=== PATIENT | male | born 2000 | race Caucasian/White ===

== ENCOUNTER 2019-08-24 19:10 | Emergency (ER) | payer SELFPAY ==
[2019-08-24 19:30] VITALS: BP 117/67; PULSE 68; RESP 22; TEMP 36.9; O2SAT 98; BMI 20.2
--- NOTE | 2019-08-24 21:29 | XR_ITS ---
WS: [id number] LUMBAR SPINE TECHNIQUE: 3 views of the lumbar spine CLINICAL INFORMATION: injury COMPARISON: None. FINDINGS: Five [id number] lumbar vertebral bodies. Mild lumbar curve convex left. Disc space heights are w ell preserved. No compression fractures. No visualized pars defects. No spondylolisthesis. Visualized sacroiliac joints are normal. Normal visualized soft tissues. Partially visualized bowel gas pattern is normal. XR/XR lumbar spine 2-3V* [id number] IMPRESSION: Mild lumbar curve. No acute appearing compression fractures.
--- NOTE | 2019-08-24 21:33 | ED_ITS ---
Entered by Adri Campos, acting as scribe for Nile Cortez MD Aug 24, 2019 19:10 HPI - Back Pain/Injury General: Chief Complaint: Back Pain/Injury Stated Complaint: lower back pain Time Seen by Provider: 08/24/19 21:29 Source: patient and EMS Mode of arrival: EMS Limitations: no limitations History of Present Illness: HPI Narrative: 19 y/o male presents to the ED with complaint of low back pain. Pt states he was attempting to loosen a board that was nailed to another board, when he felt a sudden burning sensation in his back. Pt collapsed in pain and states he has not been able to stand up straight since this occurred around 1630. MD elicited complaint: back pain and back injury Onset (ago): hour(s) Timing: intermittent Pain scale (0-10): 7 Similar Symptoms Previously: No Quality: burning Location: lumbar spine Context: while lifting Associated symptoms: Reports difficulty walking; Deny abdominal pain, chills, fever(s), nausea or vomiting Work related injury: No Review of Systems Const: Denies: fever or chills Eyes: Denies: change in vision ENMT: Denies: throat pain or mouth pain Card: Denies: chest pain Resp: Denies: shortness of breath GI: Denies: abdominal pain, nausea, vomiting or diarrhea Musc: Denies: back pain or joint pain Skin/Breast: Denies: rash Neuro: Reports: difficulty walking; Denies: headache or behavioral changes Psych: Denies: depression Endo: Denies: excessive urination Channing/Lymph: Denies: easy bruising All/Imm: Denies: hives PFSH ED PFSH: Statuses (acute, chronic, etc) shown below reflect problem list status as previously entered and may not be historically accurate Social History Smoking and tobacco status: current every day smoker Physical Exam Const: COMMON NORMALS: no apparent distress, oriented x3 and healthy appearing HENMT: COMMON NORMALS: normocephalic and external nose normal HEAD & SCALP: normocephalic NOSE: external nose normal Eye: COMMON NORMALS: PERRL PUPIL: Yes PERRL Neck/C-Spine: COMMON NORMALS: full ROM and no lymphadenopathy Chest: COMMONS NORMALS: inspection of chest normal Resp: COMMON NORMALS: normal respiratory effort, no use of accessory muscles and clear to auscultation bilaterally AUSCULTATION: clear to auscultation bilaterally Cardio: COMMON NORMALS: regular rate and regular rhythm RATE: regular rate RHYTHM: regular rhythm GI: COMMON NORMALS: normal to inspection, nondistended, normoactive bowel sounds, soft to palpation, non-tender and no masses PALPATION: Yes soft Back/Pelvis: THORACIC SPINE/UPPER BACK: Yes normal to inspection LUMBAR SPINE/LOWER BACK: Yes pain with ROM and Yes lumbar spinal tenderness Extremity: COMMON NORMALS: normal to inspection, full ROM and normal capillary refill Neuro: COMMON NORMALS: oriented x3 Psych: COMMON NORMALS: mental status grossly normal and cooperative Skin: COMMON NORMALS: no rashes or lesions noted GENERAL SKIN EXAM: no rashes or lesions noted Course Vital Signs: Vital signs: Vital Signs Temperature 98.1 F 08/24/19 22:33 Pulse Rate 80 08/24/19 22:33 Respiratory Rate 16 08/24/19 22:33 Blood Pressure 106/55 08/24/19 22:33 Pulse Oximetry 94 08/24/19 22:33 MDM - Back Pain/Injury MDM Narrative: Medical decision making narrative: Patient presents here with back pain that is likely muscular in nature. Patient has no signs of epidural abscess or cord compression. Will place patient on muscle relaxants and Naprosyn. Patient is stable for discharge and is return if worsening. Imaging Data^: xr lumbar spine: Attestation: I personally reviewed and interpreted this imaging study as follows: My impression: no acute abnormality Discharge Plan Discharge Patient Disposition: Home, Self-Care Clinical Impression: Strain of lumbar region Qualifiers: Encounter type: initial encounter Qualified Code(s): S39.012A - Strain of muscle, fascia and tendon of lower back, initial encounter Condition: Stable Prescriptions: New Robaxin-750 750 mg tablet 750 mg PO Q6H Qty: 30 RF: 0 EC-Naprosyn 500 mg tablet,delayed release (DR/EC) 500 mg PO BID PRN (Reason: pain) Qty: 20 RF: 0 Discharge Orders: Discharge Order (Routine); Ordered 08/24/19 Ordered By: Nile Cortez Referrals: Josselyn Diaz BOAT PULLER [Primary Care Provider] - Discharge Diet: Advance as tolerated Discharge Activity: Resume usual activity Patient Instructions: Back Pain (ED) Discharge Date/Time: 08/24/19 22:33 Coding Level of Care Code ED Scientific Informatics Analyst for Chg Fwd Exam Problem Focused The documentation recorded by the yassineibAndres solares Ashley, accurately reflects the service I personally performed and the decisions made by me, Nile Cortez MD Aug 24, 2019 19:10
[2019-08-24] MEDS: HYDROcodone-acetaminophen 5-325 mg Tablet 1 TAB PO (22:09)
[2019-08-24 22:33] VITALS: BP 106/55; PULSE 80; RESP 16; TEMP 36.7; O2SAT 94
== END 2019-08-24 22:33 | disposition home or self-care (01) ==
PROVIDERS: Emergency Provider Emergency Medicine; Family Provider Nurse Practitioner; PCP Nurse Practitioner
DX: S39.012A Strain of muscle, fascia and tendon of lower back, initial encounter (principal); X58.XXXA Exposure to other specified factors, initial encounter; F17.210 Nicotine dependence, cigarettes, uncomplicated
CPT/HCPCS: 72100; 99281; 99283

== ENCOUNTER 2021-01-26 13:34 | Emergency (ER) | payer SELFPAY ==
[2021-01-26 14:00] VITALS: BP 110/72; PULSE 80; RESP 18; TEMP 36.7; O2SAT 97; BMI 19.0
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
[2021-01-26] MEDS: HYDROcodone-acetaminophen 7.5-325 mg Tablet 1 TAB PO (15:47)
[2021-01-26] MEDS: tetracaine 0.5% Op Soln 4 mL Btl 1 DROP EYE-RIGHT (15:48)
[2021-01-26 15:50] VITALS: BP 137/87; PULSE 66; RESP 16; O2SAT 100
== END 2021-01-26 16:13 ==
PROVIDERS: Emergency Provider Nurse Practitioner Family
DX: S05.31XA Ocular laceration without prolapse or loss of intraocular tissue, right eye, initial encounter (principal); F17.210 Nicotine dependence, cigarettes, uncomplicated; X58.XXXA Exposure to other specified factors, initial encounter
CPT/HCPCS: 99285

== ENCOUNTER 2022-11-29 19:27 | Emergency (ER) | payer BC, MEDICAID, SELFPAY ==
[2022-11-29 19:39] VITALS: BP 110/69; PULSE 57; RESP 16; TEMP 36.4; O2SAT 97
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
[2022-11-29] MEDS: cyclobenzaprine 10 mg Tablet PO (21:43)
[2022-11-29] MEDS: naproxen 500 mg Tablet PO (21:43)
[2022-11-29 21:58] VITALS: BP 139/87; PULSE 86; RESP 16; O2SAT 99
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
--- NOTE | 2022-12-02 09:32 | DCPLANNER ---
Addendum entered by Inge Rangel 12/06/22 10:01: Patient had a follow up appointment scheduled with ortho - patient did attend appointment. Addendum entered by Inge Rangel 12/03/22 08:18: clerk manager received the following message from the ortho clinic regarding follow up appointment: attempt made to contact patient - 1st number not accepting msgs/left vm on 2nd number in chart - will also maill letter to call our clinic to schedule - next week w/ dr solis or if they want to see our PA dee matthews we can get them in this week Original Note: clerk manager had message to schedule a follow up appointment for patient with ortho. clerk manager sent patients information to the front office staff at ortho. Patients information will be printed and reviewed. Clinic will call patient with appointment information.
== END 2022-11-29 21:59 | disposition home or self-care (01) ==
PROVIDERS: Emergency Provider Physician Assistant; PCP Nurse Practitioner Family
DX: G89.11 Acute pain due to trauma (principal); M25.511 Pain in right shoulder; F17.210 Nicotine dependence, cigarettes, uncomplicated; V86.56XA Driver of dirt bike or motor/cross bike injured in nontraffic accident, initial encounter
CPT/HCPCS: 73030; 99284

== ENCOUNTER 2023-01-11 13:07 | Emergency (ER) | payer BC, MEDICAID, SELFPAY ==
[2023-01-11 13:28] VITALS: BP 103/69; PULSE 76; RESP 20; O2SAT 99; BMI 17.6
--- NOTE | 2023-01-11 13:33 | XRR_ITS ---
PROCEDURE INFORMATION: Exam: XR Chest Exam date and time: 01/11/2023 1:56 PM Age: 22 years old Clinical indication: Pain; Chest pressure; Additional info: Chest trauma TECHNIQUE: Imaging protocol: Radiologic exam of the chest. Views: 2 views. COMPARISON: CR XR ribs RT mn 3V w CXR1V [id number] 09/15/2016 1:15 PM FINDINGS: Lungs: Lung coe are aerated and clear. No infiltrates or pulmonary congestion. Pleural spaces: Unremarkable. No pleural effusion. No pneumothorax. Heart/Mediastinum: Unremarkable. No cardiomegaly. Bones/joints: Unremarkable for age. XR/XR chest 2V* [id number] IMPRESSION: Negative chest. No active disease.
--- NOTE | 2023-01-11 14:56 | XRR_ITS ---
PROCEDURE INFORMATION: Exam: XR Left Ribs Exam date and time: 01/11/2023 3:08 PM Age: 22 years old Clinical indication: Chest wall pain; Left; Patient HX: PT states no known injury, anterior rib pain at t6-t7, 2 view cxr done earlier today; Additional info: Left rib pain TECHNIQUE: Imaging protocol: Radiologic exam of the left ribs. Views: 2 views. COMPARISON: CR (CHEST, ) 01/11/2023 1:56 PM FINDINGS: Bones/joints: Limited two-view exam. No displaced fractures detected. Soft tissues: Normal. XR/XR ribs LT 2V* [id number] IMPRESSION: Negative left rib series.
--- NOTE | 2023-01-11 14:58 | ECG_ITS ---
[facility] Test Date: 2023-01-11 Pat Name: Kareem Townsend Department: Room: Gender: Male Bottle Caser: : 2000 Requested By: Yuliana Bruner Order Number: [id number] Syeda MD: Juan Olivares M.D. Measurements Intervals [place] Rate: 53 P: 0 NV: 0 QRS: 102 QRSD: 97 T: 58 QT: 425 QTc: 401 Interpretive Statements ECTOPIC ATRIAL RHYTHM INCOMPLETE RIGHT BUNDLE BRANCH BLOCK [90+ ms QRS DURATION, TERMINAL R IN V1/V2, 40+ ms S IN I/aVL/V4/V5/V6] ST ELEVATION, PROBABLY EARLY REPOLARIZATION [ST ELEVATION WITH NORMALLY INFLECTED T-WAVE] No previous ECG available for comparison Electronically Signed On 01-11-2023 21:00:20 CDT by Juan Olivares M.D. [id number]
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
[2023-01-11 16:03] VITALS: BP 103/69; PULSE 76; RESP 20; O2SAT 99
== END 2023-01-11 16:07 | disposition home or self-care (01) ==
PROVIDERS: Emergency Provider Physician Assistant; PCP Nurse Practitioner Family
DX: R07.89 Other chest pain (principal)
CPT/HCPCS: 71046; 71100; 93005; 99284

== ENCOUNTER 2023-08-02 19:37 | Emergency (ER) | payer BC, MEDICAID, SELFPAY ==
[2023-08-02 19:39] VITALS: BP 129/80; PULSE 73; RESP 18; TEMP 36.3; O2SAT 100; BMI 19.0
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
== END 2023-08-02 21:08 | disposition home or self-care (01) ==
PROVIDERS: Emergency Provider Physician Assistant; PCP Nurse Practitioner Family
DX: S20.212A Contusion of left front wall of thorax, initial encounter (principal); M54.50 Low back pain, unspecified; Z72.0 Tobacco use; V57.5XXA Driver of pick-up truck or van injured in collision with fixed or stationary object in traffic accident, initial encounter
CPT/HCPCS: 71101; 72100; 99284

== ENCOUNTER 2023-08-03 13:11 | Inpatient (IN) | payer BC, SELFPAY ==
[2023-08-03 13:17] VITALS: BP 117/74; PULSE 67; RESP 18; TEMP 36.6; O2SAT 98; BMI 20.3
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
[2023-08-03 13:49] LABS: Basophils % 0.4 %; Eosinophils # 0.1 10^3/uL (0.0-0.8); Eosinophils % 1.8 %; Hematocrit 46.4 % (37-53); Lymphocytes # 1.8 10^3/uL (0.8-4.8); Lymphocytes % 25.3 %; Mean Corpuscular HGB Conc 32.8 g/dL (30-55); Mean Corpuscular Hemoglobin 32.1 pg (27-33); Mean Corpuscular Volume 98.1 fl (82-101); Mean Platelet Volume 10.6 fL (7.4-10.4); Monocytes # 0.4 10^3/uL (0.2-0.9); Monocytes % 5.4 %; Neutrophils # 4.85 10^3/uL (1.8-7.7); Neutrophils % 66.8 %; Nucleated Red Blood Cells % 0 %; Platelet Count 175 10^3/cmm (157-399); Red Blood Count 4.73 10^6/uL (3.85-5.65); Red Cell Distribution Width 12.1 % (12.1-15.1); White Blood Count 7.26 10^3/uL (3.29-11.43)
--- NOTE | 2023-08-03 14:02 | W.ED.PSYCHS ---
HPI - Psych General: Chief Complaint: Psychiatric Symptoms Stated Complaint: MHE Time Seen by Provider: 08/03/23 13:13 Source: patient Mode of arrival: ambulatory Limitations: no limitations History of Present Illness: 23-year-old male states that he has been under a lot of stress lately and has had severe depression. He states that he has been having thoughts of worthlessness and feels like he needs to get help he is not on any meds he denies any suicidal or homicidal ideations denies any worsening improving factors. Associated symptoms: Reports depression Review of Systems Const: Denies: fever(s), chills, body aches or change in appetite ENMT: Denies: throat pain or dental pain Card: Denies: chest pain Resp: Denies: dyspnea GI: Denies: abdominal pain, nausea, vomiting or diarrhea Musc: Denies: neck pain or back pain Skin/Breast: Denies: rash Neuro: Denies: headache(s) Psych: Reports: depression [facility] ED PFSH: Medical History No pertinent past medical history No pertinent family history Social History Smoking and tobacco/nicotine status: current every day tobacco/nicotine user Current occupation: not working Physical Exam Const: COMMON NORMALS: no acute distress, patient oriented x3 and healthy appearing HENMT: COMMON NORMALS: normocephalic and atraumatic HEAD & SCALP: normocephalic and atraumatic Eye: COMMON NORMALS: Equal, round and reactive pupils present PUPIL: Yes Equal, round and reactive pupils present Neck/C-Spine: COMMON NORMALS: full ROM and supple Chest: COMMONS NORMALS: normal inspection of the chest Resp: COMMON NORMALS: normal respiratory effort Cardio: COMMON NORMALS: regular rate, regular rhythm and No murmurs present (Cardio) RATE: regular rate RHYTHM: regular rhythm Extremity: COMMON NORMALS: normal to inspection and full ROM Neuro: COMMON NORMALS: patient oriented x3, moves all extremities and no focal motor deficits Psych: COMMON NORMALS: mental status grossly normal, Normal thought process present and cooperative MOOD & AFFECT: Yes depressed mood THOUGHT PROCESS: Normal thought process present Skin: COMMON NORMALS: no rashes or lesions noted and no wounds GENERAL SKIN EXAM: no rashes or lesions noted Course Vital Signs: Vital signs: Vital Signs Temperature 98 F 08/03/23 13:17 Pulse Rate 67 08/03/23 13:17 Respiratory Rate 18 08/03/23 14:36 Blood Pressure 117/74 08/03/23 13:17 Pulse Oximetry 99 08/03/23 14:36 Oxygen Delivery Me thod Room Air 08/03/23 14:36 MDM - Psych Medical Decision Making Patient presents here with depression he is not SI or HI but he voluntarily wants to be admitted to get help patient is medically cleared I spoke to Dr. Paz will admit to the psych garg. Medical Records I reviewed the patient's medical records. Lab Data I reviewed the patient's lab results. 08/03/23 13:35 08/03/23 13:35 Radiology Impressions Chest X-Ray 08/03/23 13:30 IMPRESSION: No acute findings. Laboratory Results WBC 7.26 10^3/uL (3.29-11.43) 08/03/23 13:35 RBC 4.73 10^6/uL (3.85-5.65) 08/03/23 13:35 Hgb 15.20 g/dL (11.27-16.99) 08/03/23 13:35 Hct 46.4 % (37-53) 08/03/23 13:35 MCV 98.1 fl (82-101) 08/03/23 13:35 MCH 32.1 pg (27-33) 08/03/23 13:35 MCHC 32.8 g/dL (30-55) 08/03/23 13:35 RDW 12.1 % (12.1-15.1) 08/03/23 13:35 Plt Count 175 10^3/cmm (157-399) 08/03/23 13:35 MPV 10.6 fL (7.4-10.4) H 08/03/23 13:35 Neut % (Auto) 66.8 % 08/03/23 13:35 Lymph % (Auto) 25.3 % 08/03/23 13:35 Bailey % (Auto) 5.4 % 08/03/23 13:35 Eos % (Auto) 1.8 % 08/03/23 13:35 Baso % (Auto) 0.4 % 08/03/23 13:35 Neut # (Auto) 4.85 10^3/uL (1.8-7.7) 08/03/23 13:35 Lymph # (Auto) 1.8 10^3/uL (0.8-4.8) 08/03/23 13:35 Bailey # (Auto) 0.4 10^3/uL (0.2-0.9) 08/03/23 13:35 Eos # (Auto) 0.1 10^3/uL (0.0-0.8) 08/03/23 13:35 Baso # (Auto) 0.0 10^3/uL (0.0-0.1) 08/03/23 13:35 Nucleated RBC % (auto) 0 % 08/03/23 13:35 Nucleated RBCs # 0.0 /100WBC 08/03/23 13:35 Sodium 140 mmol/L (136-145) 08/03/23 13:35 Potassium 3.8 mmol/L (3.5-5.1) 08/03/23 13:35 Chloride 104 mmol/L (98-107) 08/03/23 13:35 Carbon Dioxide 23 mmol/L (22-29) 08/03/23 13:35 Anion Gap 16.8 (5-19) 08/03/23 13:35 BUN 10 mg/dL (6-20) 08/03/23 13:35 Creatinine 0.8 mg/dL (0.7-1.2) 08/03/23 13:35 GFR Calculation 117.8 mL/min (90-130) 08/03/23 13:35 Glucose 119 mg/dL (65-115) H 08/03/23 13:35 Calculated Osmolality 290 mOsm/kg (285-295) 08/03/23 13:35 Calcium 9.5 mg/dL (8.5-10.5) 08/03/23 13:35 Total Bilirubin 0.5 mg/dL (0.15-1.2) 08/03/23 13:35 AST 24 U/L (0-40) 08/03/23 13:35 ALT 20 U/L (0-41) 08/03/23 13:35 Alkaline Phosphatase 86 U/L (40-130) 08/03/23 13:35 Total Protein 6.9 g/dL (6.6-8.7) 08/03/23 13:35 Albumin 4.8 g/dL (3.5-5.2) 08/03/23 13:35 Globulin 2.1 g/dL (1.3-4.6) 08/03/23 13:35 Salicylates 0.9 mg/dL (3-10) L 08/03/23 13:35 Acetaminophen < 5.0 ug/mL (10-30) L 08/03/23 13:35 Ethyl Alcohol < 10 mg/dL (0-10) 08/03/23 13:35 All radiology interpretation(s) finalized by discharge Discharge Plan Discharge Patient Disposition: Admitted As Inpatient Admit Provider: Robel Paz Clinical Impression: Depression Condition: Stable Coding Level of Care Code ED Track Broom Operator for Raeann Wayne
[2023-08-03 14:12] LABS: Alanine Aminotransferase 20 U/L (0-41); Albumin Level 4.8 g/dL (3.5-5.2); Alkaline Phosphatase 86 U/L (40-130); Anion Gap 16.8 (5-19); Aspartate Amino Transferase 24 U/L (0-40); Blood Urea Nitrogen 10 mg/dL (6-20); Calcium 9.5 mg/dL (8.5-10.5); Carbon Dioxide 23 mmol/L (22-29); Chloride 104 mmol/L (98-107); Globulin 2.1 g/dL (1.3-4.6); Glomerular Filtration Rate 117.8 mL/min (90-130); Glucose 119 mg/dL (65-115); Osmolality Calculated 290 mOsm/kg (285-295); Potassium 3.8 mmol/L (3.5-5.1); Salicylate 0.9 mg/dL (3-10); Sodium 140 mmol/L (136-145); Total Bilirubin 0.5 mg/dL (0.15-1.2); Total Protein 6.9 g/dL (6.6-8.7)
[2023-08-03 14:13] LABS: Acetaminophen < 5.0 ug/mL (10-30); Alcohol Level < 10 mg/dL (0-10)
[2023-08-03 14:36] VITALS: RESP 18; O2SAT 99
[2023-08-03 14:51] VITALS: BP 144/82; PULSE 67; RESP 16; TEMP 36.6; O2SAT 97
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
[2023-08-03 19:37] VITALS: BP 106/63; PULSE 63; RESP 18; O2SAT 97
[2023-08-04 06:00] VITALS: BP 127/75; PULSE 77; RESP 18; TEMP 36.3; O2SAT 97
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
[2023-08-04 10:28] LABS: Amphetamines Screen Urine Negative (Negative); Barbiturates Screen Urine Negative (Negative); Benzodiazepines Screen Urine Negative (Negative); Cocaine Screen Urine Negative (Negative); Opiate Screen Urine Negative (Negative); PCP Screen Urine Negative (Negative); THC Screen Urine Positive (Negative)
[2023-08-04 14:00] VITALS: BP 128/77; PULSE 60; RESP 16; TEMP 36.8; O2SAT 98
[2023-08-04 19:39] VITALS: BP 113/78; PULSE 88; RESP 18; TEMP 36.8; O2SAT 98
[2023-08-05 05:54] VITALS: BP 114/58; PULSE 81; RESP 16; TEMP 36.3; O2SAT 98
[2023-08-05 14:00] VITALS: BP 128/72; PULSE 63; RESP 16; TEMP 36.6; O2SAT 98
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
[2023-08-05 19:57] VITALS: BP 103/58; PULSE 82; RESP 15; TEMP 36.7; O2SAT 99
[2023-08-06 14:00] VITALS: BP 120/52; PULSE 65; RESP 20; TEMP 36.5; O2SAT 99
[2023-08-06] MEDS: escitalopram 10 mg Tablet PO (15:42)
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
[2023-08-06 20:25] VITALS: BP 117/68; PULSE 62; RESP 15; O2SAT 95
[2023-08-06] MEDS: trazodone 50 mg Tablet PO (21:22)
[2023-08-06] MEDS: hyDROXYzine 25 mg Capsule 50 MG PO (21:22)
[2023-08-07] MEDS: escitalopram 10 mg Tablet PO (07:55)
--- NOTE | 2023-08-07 10:49 | PC.NURSE ---
pt came to nursing unit stating that his nose all of a sudden went numb, his finger tips went numb, feet went numbs states he believes lower back is out because it has done this way before and he would like it to be seen before he leaves. also stated that he would be laying face down on floor because that is what he does to help fix his pain. informed pt i would notify doctor of his request.
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
[2023-08-07 12:16] VITALS: BP 117/68; PULSE 62; RESP 15; O2SAT 95
== END 2023-08-07 13:51 | disposition home or self-care (01) | DRG 881 ==
LOC: ER 14:03 → NP 14:28
PROVIDERS: Admitting Provider Psychiatry & Neurology Psychiatry; Emergency Provider Emergency Medicine; PCP Nurse Practitioner Family; Visit Provider Psychiatry & Neurology Psychiatry
DX: F32.A Depression, unspecified (principal); M54.50 Low back pain, unspecified; Z63.0 Problems in relationship with spouse or partner; F17.210 Nicotine dependence, cigarettes, uncomplicated; Z81.8 Family history of other mental and behavioral disorders; Z81.1 Family history of alcohol abuse and dependence; Z81.3 Family history of other psychoactive substance abuse and dependence; Z62.811 Personal history of psychological abuse in childhood; Z63.4 Disappearance and death of family member; Z62.810 Personal history of physical and sexual abuse in childhood
CPT/HCPCS: 36415; 71045; 80053; 80306; 80307; 85025; 97150; 97165; 99285

== ENCOUNTER 2023-12-12 17:57 | Emergency (ER) | payer BC, MEDICAID, SELFPAY ==
[2023-12-12] VITALS (8 sets, daily range): BP systolic 113–149; BP diastolic 58–88; PULSE 69–91; RESP 13–20; TEMP 36.8; O2SAT 95–98
--- NOTE | 2023-12-12 17:58 | ECG_ITS ---
[facility] Test Date: 2023-12-12 Pat Name: Kareem Townsend Department: Room: Gender: Male Transcribing Operator Head: : 2000 Requested By: Ronak Blakely Order Number: [id number] Landa MD: Juan Olivares M.D. Measurements Intervals [place] Rate: 84 P: 0 MI: 0 QRS: 136 QRSD: 97 T: 127 QT: 329 QTc: 390 Interpretive Statements ATRIAL FIBRILLATION INDETERMINATE AXIS POSSIBLE RIGHT VENTRICULAR CONDUCTION DELAY [RSR (QR) IN V1/V2] LEFT POSTERIOR FASCICULAR BLOCK [QRS AXIS > 109, INFERIOR Q] MODERATE T-WAVE ABNORMALITY, CONSIDER LATERAL ISCHEMIA [-0.1+ mV T-WAVE IN I/aVL/V5/V6] Compared to ECG 01/11/2023 14:58:33 Indeterminate axis now present Left posterior fascicular block now present Incomplete right bundle-branch block no longer present ST (T wave) deviation no longer present Early repolarization no longer present Electronically Signed On 12-14-2023 12:38:08 CDT by Juan Olivares M.D. [id number]
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
--- NOTE | 2023-12-12 18:11 | XRR_ITS ---
PROCEDURE INFORMATION: Exam: XR Chest Exam date and time: 12/12/2023 6:26 PM Age: 23 years old Clinical indication: Chest wall pain; Additional info: Chest pain TECHNIQUE: Imaging protocol: Radiologic exam of the chest. Views: 1 view. COMPARISON: CR XR chest 1V portable [id number] 08/03/2023 1:56 PM FINDINGS: Lungs: Unremarkable. No consolidation. Pleural spaces: Unremarkable. No pleural effusion. No pneumothorax. Heart/Mediastinum: Unremarkable. No cardiomegaly. Bones/joints: Unremarkable. XR/XR chest 1V portable [id number] IMPRESSION: No acute findings.
[2023-12-12] MEDS: aspirin 81 mg Chew Tablet 324 MG PO (18:37)
[2023-12-12 19:50] LABS: Basophils % 0.2 %; Eosinophils # 0.2 10^3/uL (0.0-0.8); Eosinophils % 1.9 %; Hematocrit 48.2 % (37-53); Lymphocytes # 1.9 10^3/uL (0.8-4.8); Lymphocytes % 16.1 %; Mean Corpuscular HGB Conc 34.6 g/dL (30-55); Mean Corpuscular Hemoglobin 32.2 pg (27-33); Mean Corpuscular Volume 93.1 fl (82-101); Mean Platelet Volume 10.7 fL (7.4-10.4); Monocytes # 0.9 10^3/uL (0.2-0.9); Monocytes % 7.7 %; Neutrophils # 8.55 10^3/uL (1.8-7.7); Neutrophils % 73.8 %; Nucleated Red Blood Cells % 0 %; Platelet Count 220 10^3/cmm (157-399); Red Blood Count 5.18 10^6/uL (3.85-5.65); Red Cell Distribution Width 11.7 % (12.1-15.1); White Blood Count 11.57 10^3/uL (3.29-11.43)
[2023-12-12 20:07] LABS: Alanine Aminotransferase 20 U/L (0-41); Albumin Level 4.5 g/dL (3.5-5.2); Alkaline Phosphatase 106 U/L (40-130); Anion Gap 14.9 (5-19); Aspartate Amino Transferase 20 U/L (0-40); Blood Urea Nitrogen 13 mg/dL (6-20); Calcium 9.3 mg/dL (8.5-10.5); Carbon Dioxide 25 mmol/L (22-29); Chloride 102 mmol/L (98-107); Glomerular Filtration Rate 102.8 mL/min (90-130); Glucose 99 mg/dL (65-115); Osmolality Calculated 286 mOsm/kg (285-295); Potassium 3.9 mmol/L (3.5-5.1); Sodium 138 mmol/L (136-145); Total Bilirubin 0.4 mg/dL (0.15-1.2); Total Protein 7.5 g/dL (6.6-8.7)
--- NOTE | 2023-12-12 20:14 | ECG_ITS ---
[facility] Test Date: 2023-12-12 Pat Name: Kareem Townsend Department: Room: Gender: Male Fitting Room Inspector: : 2000 Requested By: Ronak Blakely Order Number: [id number] Landa MD: Juan Olivares M.D. Measurements Intervals [place] Rate: 73 P: -38 GA: 121 QRS: 131 QRSD: 106 T: 77 QT: 372 QTc: 412 Interpretive Statements SINUS RHYTHM INDETERMINATE AXIS POSSIBLE RIGHT VENTRICULAR CONDUCTION DELAY [RSR (QR) IN V1/V2] LEFT POSTERIOR FASCICULAR BLOCK [QRS AXIS > 109, INFERIOR Q] EARLY REPOLARIZATION [ST ELEVATION WITH NORMALLY INFLECTED T-WAVE] Compared to ECG 12/12/2023 17:58:30 Early repolarization now present Atrial fibrillation no longer present T-wave abnormality no longer present Possible ischemia no longer present Electronically Signed On 12-14-2023 12:48:45 CDT by Juan Olivares M.D. [email or web address]
[2023-12-12 20:52] LABS: Troponin(5th) Baseline 15 ng/L (0-15)
== END 2023-12-12 22:39 | disposition home or self-care (01) ==
PROVIDERS: Emergency Provider Emergency Medicine; PCP Nurse Practitioner Family
DX: F41.9 Anxiety disorder, unspecified (principal); R07.89 Other chest pain; Z72.0 Tobacco use
CPT/HCPCS: 36415; 71045; 80053; 84484; 85025; 93005; 99285

== ENCOUNTER → 2024-05-25 18:44 | Outpatient (BNVA) | payer BC, MEDICAID, SELFPAY | PROVIDERS: PCP Nurse Practitioner Family; Visit Provider Registered Nurse Neonatal Intensive Care | DX: R06.02 Shortness of breath (principal) | CPT/HCPCS: 87400; 87426 ==

== ENCOUNTER 2024-12-07 17:58 | Emergency (ER) | payer BC, MEDICAID, SELFPAY ==
[2024-12-07 18:04] VITALS: BP 114/66; PULSE 77; RESP 17; TEMP 36.4; O2SAT 99; BMI 20.7
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
[2024-12-07 18:37] LABS: Basophils % 0.3 %; Eosinophils # 0.1 10^3/uL (0.0-0.8); Eosinophils % 1.4 %; Hematocrit 40.9 % (37-53); Lymphocytes # 2.2 10^3/uL (0.8-4.8); Lymphocytes % 29.5 %; Mean Corpuscular HGB Conc 34.7 g/dL (30-55); Mean Corpuscular Volume 92.1 fl (82-101); Mean Platelet Volume 10.8 fL (7.4-10.4); Monocytes # 0.4 10^3/uL (0.2-0.9); Monocytes % 5.7 %; Neutrophils # 4.61 10^3/uL (1.8-7.7); Neutrophils % 62.8 %; Nucleated Red Blood Cells % 0 %; Platelet Count 186 10^3/cmm (157-399); Red Blood Count 4.44 10^6/uL (3.85-5.65); Red Cell Distribution Width 12.1 % (12.1-15.1); White Blood Count 7.33 10^3/uL (3.29-11.43)
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
[2024-12-07 18:59] LABS: Alanine Aminotransferase 18 U/L (0-41); Albumin Level 4.5 g/dL (3.5-5.2); Alkaline Phosphatase 81 U/L (40-130); Anion Gap 18.6 (5-19); Aspartate Amino Transferase 21 U/L (0-40); Blood Urea Nitrogen 10 mg/dL (6-20); Calcium 9.2 mg/dL (8.5-10.5); Carbon Dioxide 22 mmol/L (22-29); Chloride 104 mmol/L (98-107); Creatinine Clr Calc Pharmacy 119.3151; Globulin 2.1 g/dL (1.3-4.6); Glucose 102 mg/dL (65-115); Osmolality Calculated 291 mOsm/kg (285-295); Potassium 3.6 mmol/L (3.5-5.1); Sodium 141 mmol/L (136-145); Total Bilirubin 0.4 mg/dL (0.15-1.2); Total Protein 6.6 g/dL (6.6-8.7)
[2024-12-07] MEDS: ondansetron 2 mg/ML SDV 2 mL 4 MG IVP (19:14)
[2024-12-07 19:19] LABS: Bilirubin Urine Negative (Negative); Blood Urine Negative (Negative); Glucose Urine UA Negative (Normal); Ketones Urine Negative (Negative); Leukocyte Esterase Urine Negative (Negative); Nitrate Urine Negative (Negative); Protein Urine Negative (Negative); Specific Gravity, Urine 1.011 (1.005-1.030); Urine Appearance Clear (CLEAR); Urine Color Yellow (Yellow); pH Urine 6.5 (5-7)
[2024-12-07 19:21] LABS: Bacteria Urine None Seen /hpf; Hyaline Casts Urine 0-4 /lpf; RBC Urine 0-2 /hpf (0-2); Squamous Epithelial Cell Urine 0-5 /hpf (0-5); WBC Urine 0-5 /hpf (0-5)
[2024-12-07 19:25] LABS: Add Urine Culture? No
[2024-12-07 19:40] VITALS: BP 121/65; PULSE 89; O2SAT 96
== END 2024-12-07 19:41 | disposition home or self-care (01) ==
PROVIDERS: Emergency Provider Emergency Medicine; PCP Nurse Practitioner Family
DX: S39.94XA Unspecified injury of external genitals, initial encounter (principal); W55.22XA Struck by cow, initial encounter; Z87.891 Personal history of nicotine dependence
CPT/HCPCS: 76870; 80053; 81001; 85025; 96374; 96375; 99284; J2405

== ENCOUNTER 2025-02-09 12:40 | Emergency (ER) | payer BC, MEDICAID, SELFPAY ==
[2025-02-09 12:47] VITALS: BP 146/71; PULSE 100; RESP 18; TEMP 36.6; O2SAT 98; BMI 20.7
--- NOTE | 2025-02-09 12:49 | CT_ITS ---
WS: [id number] CT CHEST, ABDOMEN, AND PELVIS TECHNIQUE: Contrast-enhanced CT of the chest, abdomen, and pelvis with coronal and sagittal reformatted images. CLINICAL INFORMATION: trauma COMPARISON: None. DLP: 584.[address] scans at [facility] use at least one of these dose optimization techniques: automated exposure control; mA and/or kV adjustment per patient size (includes targeted exams where dose is matched to clinical indication); or iterative reconstruction. CT CHEST: Lungs are well aerated. No pneumothorax or pulmonary contusion. Normal caliber ascending thoracic aorta. Normal descending thoracic aorta. No evidence of acute aortic injury. Proximal main pulmonary arteries are normal. No acute thoracic spine compression [id number] CT ABDOMEN AND PELVIS: Normal liver. Normal spleen. No evidence of solid organ injury. No free fluid in the abdomen or pelvis. Mild hepatomegaly. Normal portal vein and splenic vein. Normal renal parenchymal enhancement. No hydronephrosis. Celiac and SMA are patent. Normal pancreatic parenchymal enhancement. Urine distended bladder. Mild disc bulging L4-L5 and L5-S1. Mild narrowing of the subarticular recess at L4-5. Normal visualized pelvic bony structures. No acute compression fractures in the lumbar spine. LEFT hip appears normal where visualized. CT/CT chest abdpel [id number]/*[id number] IMPRESSION: 1. No acute traumatic findings in the chest. No pneumothorax. 2. No evidence of solid organ injury. No free fluid in the abdomen or pelvis. 3. Mild annular bulge L4-L5 and L5-S1 with slight narrowing of the subarticula r recess L4-5.
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
--- NOTE | 2025-02-09 12:55 | XR_ITS ---
WS: [id number] XR forearm RT 2V [id number] REASON FOR EXAM: injury FINDINGS: Radius and ulna, from the elbow to the wrist, are intact without fracture. XR/XR forearm RT 2V [id number] IMPRESSION: No fracture.
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
[2025-02-09] MEDS: iohexol 350 mg/mL 500 mL Btl (per mL) IV (13:02)
[2025-02-09 13:12] LABS: Hematocrit 44.6 % (37-53); Hemoglobin 15.10 g/dL (11.27-16.99); Mean Corpuscular HGB Conc 33.9 g/dL (30-55); Mean Corpuscular Hemoglobin 31.5 pg (27-33); Mean Corpuscular Volume 93.1 fl (82-101); Nucleated Red Blood Cells % 0 %; Platelet Count 207 10^3/cmm (157-399); Red Blood Count 4.79 10^6/uL (3.85-5.65); White Blood Count 7.13 10^3/uL (3.29-11.43)
--- NOTE | 2025-02-09 13:13 | PC.PHAR ---
[facility] in [place] has no current maintenance medications for this pt. last filled Mirtazapine 7.5mg daily in August 2023.
[2025-02-09 13:22] VITALS: BP 146/71; PULSE 63; RESP 18; O2SAT 100
[2025-02-09] MEDS: HYDROmorphone 0.5 MG/0.5 ML INJ 1 MG IVP (13:23)
[2025-02-09] MEDS: ondansetron 2 mg/ML SDV 2 mL 4 MG IVP (13:24)
[2025-02-09 13:25] LABS: Alanine Aminotransferase 31 U/L (0-41); Albumin Level 4.8 g/dL (3.5-5.2); Alkaline Phosphatase 86 U/L (40-130); Anion Gap 22.0 (5-19); Aspartate Amino Transferase 36 U/L (0-40); Blood Urea Nitrogen 16 mg/dL (6-20); Calcium 9.7 mg/dL (8.5-10.5); Carbon Dioxide 19 mmol/L (22-29); Chloride 104 mmol/L (98-107); Creatinine Clr Calc Pharmacy 97.6214; Globulin 2.5 g/dL (1.3-4.6); Glucose 128 mg/dL (65-115); Osmolality Calculated 295 mOsm/kg (285-295); Potassium 4.0 mmol/L (3.5-5.1); Sodium 141 mmol/L (136-145); Total Protein 7.3 g/dL (6.6-8.7)
--- NOTE | 2025-02-09 13:52 | MR_ITS ---
WS: [id number] MRI LUMBAR SPINE NONCONTRAST HISTORY: trauma COMPARISON: CT 02/09/2025 TECHNIQUE: Sagittal and axial multisequence imaging is submitted. Normal lumbar alignment with no compression fractures or marrow edema. Disc spaces are well preserved. Mild desiccation at L4-5 and L5-S1. Limited visualization of the sacrum. No abnormality identified. Conus terminates normally at L1. L1-L2: Normal. L2-L3: Normal. L3-L4: Mild annular disc bulging. Mild disc encroachment upon the subarticular recesses. No high-grade stenosis. Minimal facet arthropathy. L4-L5: Mild annular disc bulge with a central broad-based protrusion and annular fissure. Disc encroachment upon the ventral thecal sac and subarticular recesses. Bilateral mild facet arthritis. Mild central, bilateral subarticular recess and LEFT foraminal stenosis. Mild disc contact on the traversing L5 nerve roots. L5-S1: Mild annular disc bulge with a central broad-based disc protrusion. Slight contact on the LEFT S1 nerve root. Mild bilateral foraminal stenosis due to combination of facet disease and disc disease. No high-grade stenosis. Visualized retroperitoneum is negative. No ascites identified. MR/MR lumbar spine wo con* [id number] IMPRESSION: 1. No acute lumbar spine fracture or edema. 2. Mild degenerative disc disease and facet disease from L3-4 to L5-S1. 3. L4-5: Mild central, bilateral subarticular recess and LEFT foraminal stenos is. Mild disc contact on the traversing L5 nerve roots. 4. L5-S1: Central shallow broad-based disc protrusion with minimal contact on the LEFT S1 nerve root. Mild foraminal stenosis due to disc, facet and osteophy te disease.
[2025-02-09 14:00] VITALS: PULSE 78; O2SAT 98
[2025-02-09 14:30] VITALS: PULSE 78; O2SAT 97
[2025-02-09 15:00] VITALS: BP 138/73; PULSE 80; O2SAT 97
[2025-02-09 15:36] VITALS: BP 142/88; PULSE 80; O2SAT 99
== END 2025-02-09 15:37 | disposition home or self-care (01) ==
PROVIDERS: Emergency Provider Emergency Medicine; PCP Nurse Practitioner Family
DX: S30.0XXA Contusion of lower back and pelvis, initial encounter (principal); Z87.891 Personal history of nicotine dependence; W55.22XA Struck by cow, initial encounter
CPT/HCPCS: 71260; 72148; 73090; 74177; 80053; 85025; 96374; 96375; 99285; J1100; J1171; J2405

== ENCOUNTER 2025-02-14 16:17 | Outpatient (CLI) | payer BC, MEDICAID, SELFPAY ==
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
== END 2025-02-14 16:18 | disposition home or self-care (01) ==
LOC: RAD 16:21
PROVIDERS: PCP Nurse Practitioner Adult Health; Visit Provider Nurse Practitioner Adult Health
DX: R07.89 Other chest pain (principal)
CPT/HCPCS: 71047

== ENCOUNTER 2025-04-15 14:38 | Emergency (ER) | payer SELFPAY ==
[2025-04-15 14:43] VITALS: BP 118/66; PULSE 89; RESP 16; TEMP 36.8; O2SAT 100; BMI 20.3
--- OUTSIDE RECORDS SUMMARY | 2025-04-15 14:43 | XMS_ITS | Clinical Summary ---
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 Gender Identity Not on file Sexual Orientation Not on file Last Filed Vital Signs Vital Sign Reading Time Taken Comments Blood Pressure 130/60 07/23/2023 2:00 PM COMMUNICATIONS CONTROLLER Pulse 65 07/23/2023 2:00 PM COMMUNICATIONS CONTROLLER Temperature 36.1 C (96.9 F) 07/23/2023 2:00 PM COMMUNICATIONS CONTROLLER Respiratory Rate 20 07/23/2023 2:00 PM COMMUNICATIONS CONTROLLER Oxygen Saturation 99% 07/23/2023 2:00 PM COMMUNICATIONS CONTROLLER Inhaled Oxygen Concentration - - Weight 64 kg (141 lb 3.2 oz) 07/23/2023 12:57 PM COMMUNICATIONS CONTROLLER Height 182.9 cm (6') 07/23/2023 12:57 PM COMMUNICATIONS CONTROLLER Body Mass Index 19.15 07/23/2023 12:57 PM COMMUNICATIONS CONTROLLER Plan of Treatment Health Maintenance Due Date Last Done Comments DTAP/TDAP/TD VACCINES (6 - Tdap) 2009 12/14/2003, 11/21/1999, 05/23/1999, Additional history exists HPV VACCINES (1 - Male 3-dos e series) 2013 INFLUENZA VACCINE (#1) 2025 HEPATITIS B VACCINES Completed 01/24/1999, 1998, [address] [place] [id number] [place] [address] MEDICAID
--- NOTE | 2025-04-15 16:02 | XRR_ITS ---
PROCEDURE INFORMATION: Exam: XR Chest Exam date and time: 04/15/2025 4:22 PM Age: 24 years old Clinical indication: Shortness of breath; Headache and general illness. PT reports he feels like he is on fire from the inside, burning with urination and diarrhea. ; Additional info: SOB TECHNIQUE: Imaging protocol: Radiologic exam of the chest. Views: 1 view. COMPARISON: CR XR chest 3V [id number] 02/14/2025 4:42 PM FINDINGS: Lungs: Unremarkable. No consolidation. Pleural spaces: Unremarkable. No pleural effusion. No pneumothorax. Heart/Mediastinum: Unremarkable. No cardiomegaly. Bones/joints: Unremarkable. XR/XR chest 1V portable [id number] IMPRESSION: No acute findings.
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
[2025-04-15] MEDS: ondansetron 2 mg/ML SDV 2 mL 4 MG IVP (16:27)
[2025-04-15 16:28] LABS: Hematocrit 44.0 % (37-53); Hemoglobin 15.30 g/dL (11.27-16.99); Mean Corpuscular HGB Conc 34.8 g/dL (30-55); Mean Corpuscular Hemoglobin 32.5 pg (27-33); Mean Corpuscular Volume 93.4 fl (82-101); Nucleated Red Blood Cells % 0 %; Platelet Count 206 10^3/cmm (157-399); Red Blood Count 4.71 10^6/uL (3.85-5.65); White Blood Count 7.51 10^3/uL (3.29-11.43)
[2025-04-15 16:31] LABS: Glucose Urine UA Negative (Normal); Nitrate Urine Negative (Negative); Specific Gravity, Urine 1.018 (1.005-1.030)
[2025-04-15 16:36] LABS: Add Urine Microscopic? YES
[2025-04-15 16:51] LABS: Alanine Aminotransferase 18 U/L (0-41); Albumin Level 4.7 g/dL (3.5-5.2); Alkaline Phosphatase 94 U/L (40-130); Anion Gap 18.6 (5-19); Aspartate Amino Transferase 16 U/L (0-40); Blood Urea Nitrogen 14 mg/dL (6-20); Calcium 9.7 mg/dL (8.5-10.5); Carbon Dioxide 22 mmol/L (22-29); Chloride 100 mmol/L (98-107); Creatinine Clr Calc Pharmacy 118.6768; Globulin 2.7 g/dL (1.3-4.6); Glucose 90 mg/dL (65-115); Osmolality Calculated 284 mOsm/kg (285-295); Potassium 3.6 mmol/L (3.5-5.1); Sodium 137 mmol/L (136-145); Total Protein 7.4 g/dL (6.6-8.7)
[2025-04-15 17:26] LABS: Respiratory Syncytial Virus Ce NEGATIVE (Negative)
[2025-04-15 17:33] LABS: SARS-CoV-2 PCR Positive (Negative)
== END 2025-04-15 18:01 | disposition home or self-care (01) ==
PROVIDERS: Emergency Provider Physician Assistant; PCP Nurse Practitioner Adult Health
DX: U07.1 COVID-19 (principal); Z11.52 Encounter for screening for COVID-19; Z87.891 Personal history of nicotine dependence
CPT/HCPCS: 36415; 71045; 80053; 81001; 85025; 87637; 96374; 96375; 99284; J1885; J2405; J7030

== ENCOUNTER 2025-07-26 15:32 | Inpatient (IN) | payer SELFPAY ==
[2025-07-26 15:36] VITALS: BP 133/68; PULSE 87; RESP 16; TEMP 36.8; O2SAT 94; BMI 19.9
--- NOTE | 2025-07-26 15:46 | ED.C_ITS ---
Documented by User: RAFAEL Hernadez 07/26/25 17:29 HPI - Psych 2 General: Chief Complaint: Psychiatric Symptoms Stated Complaint: SI Source: patient Mode of arrival: EMS Limitations: no limitations History of Present Illness: Patient is a 25-year-old male with no pertinent past medical history on file who presents to the emergency department by ambulance for suicidal ideations. EMS had stated that the patient had reported them a lot of things happening recently, and today he was found with a knife of which the independent living advisor of confiscated. Patient tells me that he has been SI for the past 3 months, corresponding with the of his son. Tells me that he went to [place] with his fianc?e where the child was born and he tells me then that his mom took the baby to live with her and the patient's fianc?. Patient tells me he has been living in [place] with his mom, son, elin? living in [place]. Patient is very vague on why this is the case, does not specifically tell me of any incident that occurred as to why he is from them, but tells me that essentially today he had a knife in an attempt to harm himself. He has not have any thoughts of hurting anyone else, he does not hear or see anything or any other hallucinatory behavior. He is not reporting any alcohol or drug use. He tells me that he wants seen in the neuropsychiatric unit. MD complaint: suicidal ideation and feels depressed Onset (ago): month(s) (3) Associated symptoms: Reports depression and suicidal ideation; Deny auditory hallucinations, visual hallucinations or homicidal ideation Related Data Previous Rx's ?Medication ?Instructions ?Recorded hydrocodone 5 mg-acetaminophen 325 1 tab PO Q6H PRN pa in #14 tabs 02/09/25 mg tablet methocarbamol 750 mg tablet 750 mg PO Q6H PRN spasms # 20 tabs 02/09/25 naproxen 500 mg tablet (Naprosyn) 500 mg PO BID PRN pa in #20 tabs 02/09/25 Allergies Allergy/AdvReac Type Severity Reaction Status Date / Time adhesive tape Allergy Intermediate ALGY-Bliste Verified 05/25/24 18:40 r Review of Systems 2 General: Reports: 10 or more systems reviewed and unremarkable except in HPI and below Const: Denies: fever(s), chills or fatigue Eyes: Denies: change in vision ENMT: Denies: throat pain, ear or mastoid pain or nasal discharge Card: Denies: chest pain, palpitations, swelling of feet/ankles or lightheadedness Resp: Denies: dyspnea, productive cough or wheezing GI: Denies: abdominal pain, nausea, vomiting, diarrhea or constipation : Denies: flank pain, difficulty urinating, dysuria or urinary frequency Musc: Denies: neck pain, back pain or joint pain Skin/Breast: Denies: rash Neuro: Denies: headache(s), numbness in extremities or weakness in extremities Psych: Reports: depression and suicidal ideation; Denies: visual hallucinations, auditory hallucinations, tactile hallucinations or homicidal ideation PFSH ED 2 PFSH: Medical History No pertinent past medical history No pertinent family history Social History Smoking and tobacco/nicotine status: former use of tobacco/nicotine Current occupation: not working Physical Exam 2 Const: COMMON NORMALS: no acute distress, patient oriented x3 and no limitations GENERAL APPEARANCE: cooperative, comfortable and well developed ORIENTATION/CONSCIOUSNESS: Yes awake, Yes oriented to person, Yes oriented to place and Yes oriented to time HENMT: COMMON NORMALS: normocephalic, atraumatic and hearing grossly normal bilaterally HEAD & SCALP: normocephalic and atraumatic Eye: COMMON NORMALS: Equal, round and reactive pupils present, EOMs intact bilaterally and conjunctivae normal CONJUNCTIVA: Yes conjunctivae normal P UPIL: Yes Equal, round and reactive pupils present Neck/C-Spine: COMMON NORMALS: full ROM, supple and no JVD Resp: COMMON NORMALS: normal respiratory effort, No retractions, No use of accessory muscles and clear to auscultation bilaterally AUSCULTATION: clear to auscultation bilaterally Cardio: COMMON NORMALS: no JVD, regular rate, regular rhythm, No clicks present (Cardio), No murmurs present (Cardio) and No rub (Cardio) RATE: r egular rate RHYTHM: regular rhythm Extremity: COMMON NORMALS: normal to inspection, full ROM and capillary refill normal Neuro: COMMON NORMALS: patient oriented x3, moves all extremities, no focal motor deficits and no sensory deficits noted SENSORIUM/ORIENTATION: Yes oriented to person, Yes oriented to place and Yes oriented to time Psych: APPEARANCE: Yes unkempt ACTIVITY/MOTOR BEHAVIOR: Yes Avoids eye contact (attititude/behavior) SPEECH: Yes soft MOOD & AFFECT: Yes depressed mood, Yes anxious and Yes tearful THOUGHT CONTENT: Yes Suicidality present, No Homicidality present and No Hallucination(s) present Skin: COMMON NORMALS: no rashes or lesions noted GENERAL SKIN EXAM: no rashes or lesions noted Course 2 Vital Signs: Vital signs: Vital Signs Temperature 98.2 F 07/26/25 15:36 Pulse Rate 87 07/26/25 15:36 Respiratory Rate 16 07/26/25 15:36 Blood Pressure 133/68 07/26/25 15:36 Pulse Oximetry 94 07/26/25 15:36 Oxygen Delivery Me thod Room Air 07/26/25 15:36 MDM - Psych Medical Decision Making Patient presented for reports of suicidal ideation, cleared medically and spoke to Dr. Vela, psychiatrist, excepting the patient for evaluation in the neuropsychiatric unit. Dr. Noel placing admit orders at this time. Lab Data 07/26/25 15:47 07/26/25 15:47 Laboratory Results WBC 6.52 10^3/uL (3.29-11.43) 07/26/25 15:47 RBC 4.79 10^6/uL (3.85-5.65) 07/26/25 15:47 Hgb 15.30 g/dL (11.27-16.99) 07/26/25 15:47 Hct 44.2 % (37-53) 07/26/25 15:47 MCV 92.3 fl (82-101) 07/26/25 15:47 MCH 31.9 pg (27-33) 07/26/25 15:47 MCHC 34.6 g/dL (30-55) 07/26/25 15:47 RDW 12.1 % (12.1-15.1) 07/26/25 15:47 Plt Count 215 10^3/cmm (157-399) 07/26/25 15:47 MPV 10.3 fL (7.4-10.4) 07/26/25 15:47 Neut % (Auto) 63.4 % 07/26/25 15:47 Lymph % (Auto) 25.0 % 07/26/25 15:47 [place] % (Auto) 8.3 % 07/26/25 15:47 Eos % (Auto) 2.5 % 07/26/25 15:47 Baso % (Auto) 0.5 % 07/26/25 15:47 Neut # (Auto) 4.14 10^3/uL (1.8-7.7) 07/26/25 15:47 Lymph # (Auto) 1.6 10^3/uL (0.8-4.8) 07/26/25 15:47 [place] # (Auto) 0.5 10^3/uL (0.2-0.9) 07/26/25 15:47 Eos # (Auto) 0.2 10^3/uL (0.0-0.8) 07/26/25 15:47 Baso # (Auto) 0.0 10^3/uL (0.0-0.1) 07/26/25 15:47 Nucleated RBC % (auto) 0 % 07/26/25 15:47 Nucleated RBCs # 0.0 /100WBC 07/26/25 15:47 Sodium 139 mmol/L (136-145) 07/26/25 15:47 Potassium 4.2 mmol/L (3.5-5.1) 07/26/25 15:47 Chloride 102 mmol/L (98-107) 07/26/25 15:47 Carbon Dioxide 22 mmol/L (22-29) 07/26/25 15:47 Anion Gap 19.2 (5-19) H 07/26/25 15:47 BUN 8 mg/dL (6-20) 07/26/25 15:47 Creatinine 0.9 mg/dL (0.7-1.2) 07/26/25 15:47 GFR Calculation 101.2 mL/min (90-130) 07/26/25 15:47 Glucose 94 mg/dL (65-115) 07/26/25 15:47 Calculated Osmolality 286 mOsm/kg (285-295) 07/26/25 15:47 Calcium 9.3 mg/dL (8.5-10.5) 07/26/25 15:47 Total Bilirubin 0.4 mg/dL (0.15-1.2) 07/26/25 15:47 AST 20 U/L (0-40) 07/26/25 15:47 ALT 13 U/L (0-41) 07/26/25 15:47 Alkaline Phosphatase 89 U/L (40-130) 07/26/25 15:47 Total Protein 7.0 g/dL (6.6-8.7) 07/26/25 15:47 Albumin 4.8 g/dL (3.5-5.2) 07/26/25 15:47 Globulin 2.2 g/dL (1.3-4.6) 07/26/25 15:47 Salicylates < 0.3 mg/dL (3-10) L 07/26/25 15:47 Acetaminophen < 5.0 ug/mL (10-30) L 07/26/25 15:47 Ethyl Alcohol < 10 mg/dL (0-10) 07/26/25 15:47 No radiology studies performed this visit Discharge Plan Discharge Patient Disposition: Admitted As Inpatient Admit Provider: Yair Ayoub Clinical Impression: Suicidal ideation Condition: Stable Coding Level of Care Code ED Family Service Aide for Chg Fwd Documented by User: Arlene Noel MD 07/26/25 18:21 HPI - Psych 2 General: Chief Complaint: Psychiatric Symptoms Stated Complaint: SI Related Data Previous Rx's ?Medication ?Instructions ?Recorded hydrocodone 5 mg-acetaminophen 325 1 tab PO Q6H PRN pa in #14 tabs 02/09/25 mg tablet methocarbamol 750 mg tablet 750 mg PO Q6H PRN spasms # 20 tabs 02/09/25 naproxen 500 mg tablet (Naprosyn) 500 mg PO BID PRN pa in #20 tabs 02/09/25 Allergies Allergy/AdvReac Type Severity Reaction Status Date / Time adhesive tape Allergy Intermediate ALGY-Bliste Verified 05/25/24 18:40 r PFSH ED 2 PFSH: Medical History No pertinent past medical history No pertinent family history Social History Smoking and tobacco/nicotine status: former use of tobacco/nicotine Current occupation: not working Course 2 Vital Signs: Vital signs: Vital Signs Temperature 98.2 F 07/26/25 15:36 Pulse Rate 87 07/26/25 15:36 Respiratory Rate 16 07/26/25 15:36 Blood Pressure 133/68 07/26/25 15:36 Pulse Oximetry 94 07/26/25 15:36 Oxygen Delivery Me thod Room Air 07/26/25 15:36 MDM - Psych Medical Decision Making Patient presented for reports of suicidal ideation, cleared medically and spoke to Dr. Vela, psychiatrist, excepting the patient for evaluation in the neuropsychiatric unit. Dr. Noel placing admit orders at this time. The case was discussed with the midlevel provider. Evaluation and management service: I agree with the evaluation and management decisions made in this patient's care. Results interpretation: I agree with the study interpretation in this patient's care, I agree with the documentation of the study interpretation. Lab Data 07/26/25 15:47 07/26/25 15:47 Laboratory Results WBC 6.52 10^3/uL (3.29-11.43) 07/26/25 15:47 RBC 4.79 10^6/uL (3.85-5.65) 07/26/25 15:47 Hgb 15.30 g/dL (11.27-16.99) 07/26/25 15:47 Hct 44.2 % (37-53) 07/26/25 15:47 MCV 92.3 fl (82-101) 07/26/25 15:47 MCH 31.9 pg (27-33) 07/26/25 15:47 MCHC 34.6 g/dL (30-55) 07/26/25 15:47 RDW 12.1 % (12.1-15.1) 07/26/25 15:47 Plt Count 215 10^3/cmm (157-399) 07/26/25 15:47 MPV 10.3 fL (7.4-10.4) 07/26/25 15:47 Neut % (Auto) 63.4 % 07/26/25 15:47 Lymph % (Auto) 25.0 % 07/26/25 15:47 [place] % (Auto) 8.3 % 07/26/25 15:47 Eos % (Auto) 2.5 % 07/26/25 15:47 Baso % (Auto) 0.5 % 07/26/25 15:47 Neut # (Auto) 4.14 10^3/uL (1.8-7.7) 07/26/25 15:47 Lymph # (Auto) 1.6 10^3/uL (0.8-4.8) 07/26/25 15:47 [place] # (Auto) 0.5 10^3/uL (0.2-0.9) 07/26/25 15:47 Eos # (Auto) 0.2 10^3/uL (0.0-0.8) 07/26/25 15:47 Baso # (Auto) 0.0 10^3/uL (0.0-0.1) 07/26/25 15:47 Nucleated RBC % (auto) 0 % 07/26/25 15:47 Nucleated RBCs # 0.0 /100WBC 07/26/25 15:47 Sodium 139 mmol/L (136-145) 07/26/25 15:47 Potassium 4.2 mmol/L (3.5-5.1) 07/26/25 15:47 Chloride 102 mmol/L (98-107) 07/26/25 15:47 Carbon Dioxide 22 mmol/L (22-29) 07/26/25 15:47 Anion Gap 19.2 (5-19) H 07/26/25 15:47 BUN 8 mg/dL (6-20) 07/26/25 15:47 Creatinine 0.9 mg/dL (0.7-1.2) 07/26/25 15:47 GFR Calculation 101.2 mL/min (90-130) 07/26/25 15:47 Glucose 94 mg/dL (65-115) 07/26/25 15:47 Calculated Osmolality 286 mOsm/kg (285-295) 07/26/25 15:47 Calcium 9.3 mg/dL (8.5-10.5) 07/26/25 15:47 Total Bilirubin 0.4 mg/dL (0.15-1.2) 07/26/25 15:47 AST 20 U/L (0-40) 07/26/25 15:47 ALT 13 U/L (0-41) 07/26/25 15:47 Alkaline Phosphatase 89 U/L (40-130) 07/26/25 15:47 Total Protein 7.0 g/dL (6.6-8.7) 07/26/25 15:47 Albumin 4.8 g/dL (3.5-5.2) 07/26/25 15:47 Globulin 2.2 g/dL (1.3-4.6) 07/26/25 15:47 Salicylates < 0.3 mg/dL (3-10) L 07/26/25 15:47 Acetaminophen < 5.0 ug/mL (10-30) L 07/26/25 15:47 Ethyl Alcohol < 10 mg/dL (0-10) 07/26/25 15:47 Discharge Plan Discharge Patient Disposition: Admitted As Inpatient Admit Provider: Yair Ayoub Clinical Impression: Suicidal ideation Condition: Stable Coding Level of Care Code ED Family Service Aide for Raeann Wayne
[2025-07-26 15:57] LABS: Hematocrit 44.2 % (37-53); Hemoglobin 15.30 g/dL (11.27-16.99); Mean Corpuscular HGB Conc 34.6 g/dL (30-55); Mean Corpuscular Hemoglobin 31.9 pg (27-33); Mean Corpuscular Volume 92.3 fl (82-101); Nucleated Red Blood Cells % 0 %; Platelet Count 215 10^3/cmm (157-399); Red Blood Count 4.79 10^6/uL (3.85-5.65); White Blood Count 6.52 10^3/uL (3.29-11.43)
[2025-07-26 16:15] LABS: Alanine Aminotransferase 13 U/L (0-41); Albumin Level 4.8 g/dL (3.5-5.2); Alkaline Phosphatase 89 U/L (40-130); Anion Gap 19.2 (5-19); Aspartate Amino Transferase 20 U/L (0-40); Blood Urea Nitrogen 8 mg/dL (6-20); Calcium 9.3 mg/dL (8.5-10.5); Carbon Dioxide 22 mmol/L (22-29); Chloride 102 mmol/L (98-107); Globulin 2.2 g/dL (1.3-4.6); Glucose 94 mg/dL (65-115); Osmolality Calculated 286 mOsm/kg (285-295); Potassium 4.2 mmol/L (3.5-5.1); Sodium 139 mmol/L (136-145); Total Protein 7.0 g/dL (6.6-8.7)
[2025-07-26 16:18] LABS: Acetaminophen < 5.0 ug/mL (10-30); Alcohol Level < 10 mg/dL (0-10); Salicylate < 0.3 mg/dL (3-10)
--- OUTSIDE RECORDS SUMMARY | 2025-07-26 16:49 | XMS_ITS | Clinical Summary ---
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 Gender Identity Not on file Sexual Orientation Not on file Last Filed Vital Signs Vital Sign Reading Time Taken Comments Blood Pressure 130/60 07/23/2023 2:00 PM SENIOR TAX SPECIALIST Pulse 65 07/23/2023 2:00 PM SENIOR TAX SPECIALIST Temperature 36.1 C (96.9 F) 07/23/2023 2:00 PM SENIOR TAX SPECIALIST Respiratory Rate 20 07/23/2023 2:00 PM SENIOR TAX SPECIALIST Oxygen Saturation 99% 07/23/2023 2:00 PM SENIOR TAX SPECIALIST Inhaled Oxygen Concentration - - Weight 64 kg (141 lb 3.2 oz) 07/23/2023 12:57 PM SENIOR TAX SPECIALIST Height 182.9 cm (6') 07/23/2023 12:57 PM SENIOR TAX SPECIALIST Body Mass Index 19.15 07/23/2023 12:57 PM SENIOR TAX SPECIALIST Plan of Treatment Health Maintenance Due Date Last Done Comments DTAP/TDAP/TD VACCINES (6 - Tdap) 2009 12/14/2003, 11/21/1999, 05/23/1999, Additional history exists INFLUENZA VACCINE (#1) 2025 HEPATITIS B VACCINES Completed 01/24/1999, 1998, 1998 HPV VACCINES (No Doses Required) Completed [address] [place] [id number] [place] [address] MEDICAID [id number] [address]
[2025-07-26 18:31] LABS: PCP Screen Urine Negative (Negative)
[2025-07-26 18:35] VITALS: BP 133/68; PULSE 87; O2SAT 99
[2025-07-26 18:52] VITALS: BP 119/79; PULSE 70; RESP 16; TEMP 36.6; O2SAT 98
[2025-07-26 19:55] VITALS: BP 119/79; PULSE 70; RESP 16; TEMP 36.6; O2SAT 98
--- NOTE | 2025-07-27 06:27 | PC.NURSE ---
vs not collected pt resting in bed with both eyes closed
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
[2025-07-27 20:39] VITALS: BP 113/71; PULSE 70; RESP 16; TEMP 36.3; O2SAT 97
--- NOTE | 2025-07-28 06:17 | PC.NURSE ---
vitals vs not collected pt resting in bed with both eyes closed resp 17
[2025-07-28 13:53] VITALS: BP 113/71; PULSE 70; RESP 16; TEMP 36.3; O2SAT 97
[2025-07-28 14:00] VITALS: BP 104/55; PULSE 70; RESP 18; TEMP 36.6; O2SAT 97
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
== END 2025-07-28 15:13 | disposition home or self-care (01) | DRG 881 ==
LOC: ER 16:30 → NP 17:50
PROVIDERS: Admitting Provider Psychiatry & Neurology Psychiatry; Emergency Provider Physician Assistant; Visit Provider Psychiatry & Neurology Psychiatry
DX: F34.1 Dysthymic disorder (principal); R45.851 Suicidal ideations; F43.10 Post-traumatic stress disorder, unspecified
CPT/HCPCS: 36415; 80053; 80306; 80307; 85025; 97150; 97165; 99285; J9999